=== PATIENT | male | born 1980 | race Caucasian/White ===

== ENCOUNTER → 2017-12-24 | Day surgery (SDC) | payer BC | LOC: ENDO/OP 07:51 | PROVIDERS: ATTEND Surgery | DX: K21.9 Gastro-esophageal reflux disease without esophagitis (principal); K44.9 Diaphragmatic hernia without obstruction or gangrene; Z79.899 Other long term (current) drug therapy | CPT/HCPCS: 91010 ==

== ENCOUNTER 2018-01-11 12:26 | Outpatient (CLI) | payer BC ==
[2018-01-11 13:16] LABS: #Basophils 0.1 thou/uL (0.0-0.2); #Eosinphils 0.1 thou/uL (0.0-0.7); #Lymphocytes 1.4 thou/uL (1.20-3.40); #Monocytes 0.6 thou/uL (0.11-0.59); #Neutrophils 4.3 thou/uL (1.40-6.50); %Basophils 0.9 % (0.0-1.0); %Eosinophils 0.9 % (0.0-10.0); %Lymphocytes 21.5 % (21.0-51.0); %Neutrophils 67.7 % (42.0-75.0); Mean Corpuscular HGB CONC 32.6 g/dL (32.0-36.0); Mean Corpuscular Hemoglobin 28.8 pg (27.0-31.0); Mean Corpuscular Volume 88.3 fL (78.0-98.0); Mean Platelet Volume 8.6 fL (7.4-10.4); Platelet Count 210 thou/uL (130-400); Red Blood Cell (RBC) Count 4.51 mill/uL (4.70-6.10); White Blood Cell (WBC) Count 6.4 thou/uL (4.8-10.8)
[2018-01-11 13:39] LABS: ALT (SGPT) 28 U/L (8-55); AST (SGOT) 29 U/L (5-34); Albumin 4.4 g/dL (3.5-5.0); Alkaline Phosphatase 69 U/L (40-150); Anion Gap 13 mmol/L (10-20); BUN (Urea Nitrogen) 19 mg/dL (8.9-20.6); Bilirubin, Total 0.5 mg/dL (0.2-1.2); Calc. Creatinine Clearance 0 mL/min (70-130); Calcium 9.6 mg/dL (7.8-10.44); Carbon Dioxide 23 mmol/L (22-29); Chloride 105 mmol/L (98-107); Estimated GFR-MDRD 64; Globulin 2.8 g/dL (2.4-3.5); Glucose 89 mg/dL (70-105); Potassium 4.3 mmol/L (3.5-5.1); Protein, Total 7.2 g/dL (6.0-8.3); Sodium 137 mmol/L (136-145)
--- NOTE | 2018-01-12 09:41 | EKG ---
Test Reason : Blood Pressure : / mmHG Vent. Rate : 073 BPM Atrial Rate : 073 BPM P-R Int : 170 ms QRS Dur : 096 ms QT Int : 382 ms P-R-T Axes : 030 072 014 degrees QTc Int : 420 ms Normal sinus rhythm Normal ECG No previous ECGs available Confirmed by NICKY HASKINS ([id number]) on 01/12/2018 9:41:03 AM Referred By: GENEVA Confirmed By:NICKY HASKINS
== END 2018-01-11 12:27 | disposition home or self-care (01) ==
LOC: LABBT 12:26
PROVIDERS: ATTEND Surgery
DX: Z01.818 Encounter for other preprocedural examination (principal); K44.9 Diaphragmatic hernia without obstruction or gangrene; K21.9 Gastro-esophageal reflux disease without esophagitis
CPT/HCPCS: 80053; 85025; 93005; 93010

== ENCOUNTER 2018-01-13 09:50 | Inpatient (IN) | payer BC ==
[2018-01-11 12:45] VITALS: BMI 33.5
[2018-01-13] MEDS ORDERED: Bupivacaine/Epinephrine 0.25% 30 ML VIAL ONE (09:54)
[2018-01-13] MEDS ORDERED: Fentanyl 100 MCG/2 ML VIAL ONE (10:03)
[2018-01-13] MEDS ORDERED: HYDROmorphone 2 MG/ML VIAL ONE ×2 (10:04→14:27)
[2018-01-13] MEDS ORDERED: Midazolam HCl 2 mg/2 ml Vial ONE (10:29)
[2018-01-13] MEDS ORDERED: Scopolamine 1.5 mg/72 hour Patch ONE (10:30)
[2018-01-13] MEDS ORDERED: CEFAZOLIN/Water 2 GM/20 ML SYRINGE ONE (11:09)
[2018-01-13] MEDS ORDERED: Hydrocodone-Acetamin 15 ML UDCUP PO PRN (13:27)
[2018-01-13] MEDS ORDERED: Ondansetron HCl/PF 4 MG/2 ML Vial IVP PRN ×3 (13:27→13:55)
[2018-01-13] MEDS ORDERED: diphenhydrAMINE 50 MG/ML VIAL IVP PRN ×2 (13:27→13:55)
[2018-01-13] MEDS ORDERED: Dextrose 50% Abboject 50 ML SYRINGE SLOW IVP PRN (13:27)
[2018-01-13] MEDS ORDERED: hydrALAZINE 20 MG/ML VIAL SLOW IVP PRN (13:27)
[2018-01-13] MEDS ORDERED: Dextrose 5% in Water 1,000 ML IV PRN (13:27)
[2018-01-13] MEDS ORDERED: Promethazine HCl 25 MG/ML VIAL IM PRN ×3 (13:27→13:55)
[2018-01-13] MEDS ORDERED: PACU-Morphine 4MG/ML VIAL SLOW IVP PRN (13:32)
[2018-01-13] MEDS ORDERED: HYDROmorphone 2 MG/ML VIAL SLOW IVP PRN (13:32)
[2018-01-13] MEDS ORDERED: Promethazine HCl 25 MG/ML VIAL SLOW IVP PRN (13:32)
[2018-01-13] MEDS ORDERED: diphenhydrAMINE 50 MG/ML VIAL IM PRN (13:55)
[2018-01-13] MEDS ORDERED: HYDROmorphone 10 mg/100 ml CADD IVPB PRN (13:55)
[2018-01-13] MEDS ORDERED: Naloxone HCl 0.4 mg/ml Vial IV PRN (13:55)
[2018-01-13] MEDS ORDERED: Zolpidem Tartrate 5 MG TAB PO PRN (13:55)
[2018-01-13] MEDS ORDERED: diphenhydrAMINE 25 MG CAP PO PRN (13:55)
[2018-01-13] MEDS ORDERED: Communication Order-Pharmacy FS SCH (14:00)
[2018-01-13] MEDS: Ketorolac Tromethamine 30 MG/ML VIAL IVP SCH ×2 (18:45→23:17)
[2018-01-13] MEDS: D5 1/2 NS w/20 mEq KCL 1,000 ML IV SCH ×2 (18:48→23:16)
--- NOTE | 2018-01-13 19:00 | OP ---
PREOPERATIVE DIAGNOSIS: Hiatal hernia with reflux. SURGEON: Adan Zelaya M.D. PROCEDURE PERFORMED: Laparoscopic hiatal henia repair with Carly fundoplication. INDICATIONS: He is a 37-year-old male who has had severe reflux for the last 20 years. An EGD shows a large hiatal hernia. FINDINGS: Large hiatal hernia. The anatomy was distorted from chronic inflammation in the area. PROCEDURE IN DETAIL: After informed consent was obtained, the patient was taken to the operating megha m and given general endotracheal anesthesia. He was placed in the supine position. His abdomen was prepped and draped in usual fashion. Local anesthesia infiltrated subcutaneously and deep, and a 5 m m incision was performed approximately 8 inches below the xiphoid slightly to the left. Veress needl e inserted. Drop test performed. Pneumoperitoneum was created to a pressure of 15 mmHg. A 0-degree laparoscope inserted and under direct vision, a Codementoren liver retractor inserted. Left lobe of li verito retracted superiorly. A 5 mm port was placed just to the left of the falciform and 8 mm port was placed left subcostal and then another 5 mm port placed in left lateral abdomen. The gastrophrenic ligament was divided utilizing the LigaSure. The right crura was easily identified and the peritoneu m opened at the right crura and a long anterior, left crura was ill-defined. There was quite a bit o f inflammation. I was able to do some very careful blunt dissection and then elected to go ahead and take the short gastrics down to help better define the left crura. These were taken down utilizing the LigaSure. The left crura then was able to be further defined. Posteriorly, there is a lot of in flammation and trying to separate the esophagus from the crural confluence posteriorly was difficult. Eventually, I was able to get this dissected out. A Tegan drain was placed around the esophagus and retracted inferiorly. Then, the 40-Turkish bougie was inserted, directed into the stomach and the posterior crural clot plication was performed utilizing 0 Ethibond and sew-right and tie knot device . Then, the fundus was grasped and brought to the right side of the esophagus and the fundoplication was performed between left fundus esophagus and right fundus with 3 sutures. Then, finally the stom ach was tacked to the abdominal wall with a 2-0 silk suture with slight tension to try and prevent re currence. Intraoperative endoscopy was then performed utilizing the video endoscope, which was inser sahnda and under direct vision and advanced into the stomach. The stomach was maximally insufflated wit h air and retroflexed. There was no paraesophageal component and no torsion. The stomach decompress ed and the scope removed. Trocars and retractors removed. The skin closed with interrupted 4-0 Rapi de. Steri-Strips applied. Sterile bandages applied. The patient tolerated the procedure well and w as transferred to recovery in good condition. Sponge and needle count verified correct x2.
[2018-01-13] MEDS: CEFAZOLIN/Water 2 GM/20 ML SYRINGE SLOW IVP SCH (21:22)
[2018-01-14] MEDS: CEFAZOLIN/Water 2 GM/20 ML SYRINGE SLOW IVP SCH (04:20)
[2018-01-14 05:17] LABS: #Monocytes 0.8 thou/uL (0.11-0.59); %Basophils 0.5 % (0.0-1.0); %Eosinophils 0.1 % (0.0-10.0); %Lymphocytes 12.9 % (21.0-51.0); %Neutrophils 76.6 % (42.0-75.0); Hemoglobin 11.8 g/dL (14.0-18.0); Mean Corpuscular HGB CONC 31.4 g/dL (32.0-36.0); Mean Corpuscular Hemoglobin 28.1 pg (27.0-31.0); Mean Corpuscular Volume 89.6 fL (78.0-98.0); Mean Platelet Volume 9.3 fL (7.4-10.4); Platelet Count 192 thou/uL (130-400); RBC Distribution Width 12.3 % (11.5-14.5); Red Blood Cell (RBC) Count 4.18 mill/uL (4.70-6.10); White Blood Cell (WBC) Count 7.9 thou/uL (4.8-10.8)
[2018-01-14 05:24] LABS: Anion Gap 9 mmol/L (10-20); BUN (Urea Nitrogen) 13 mg/dL (8.9-20.6); Calc. Creatinine Clearance 138 mL/min (70-130); Calcium 8.4 mg/dL (7.8-10.44); Carbon Dioxide 26 mmol/L (22-29); Chloride 108 mmol/L (98-107); Estimated GFR-MDRD 73; Glucose 123 mg/dL (70-105); Potassium 4.5 mmol/L (3.5-5.1); Sodium 138 mmol/L (136-145)
[2018-01-14] MEDS: Ketorolac Tromethamine 30 MG/ML VIAL IVP SCH ×2 (05:38→12:27)
[2018-01-14] MEDS: D5 1/2 NS w/20 mEq KCL 1,000 ML IV SCH ×2 (05:40→10:07)
[2018-01-14 08:06] VITALS: TEMP 98
[2018-01-14] MEDS ORDERED: Pantoprazole 40 MG VIAL IVP SCH (09:00)
[2018-01-14] MEDS ORDERED: Enoxaparin Sodium 40 MG/0.4 ML SYRINGE SC SCH (09:00)
--- NOTE | 2018-01-14 10:28 | RAD ---
GASTROGRAFIN SWALLOW STUDY WITH FLUOROSCOPY: HISTORY: Status post laparoscopic hernia repair. FINDINGS: The patient was administered Gastrografin which passes without any difficulty or delay from the esoph bharath into the stomach. No leak. No extravasation. Contrast is noted in the proximal small bowel lo ops. Supine and upright abdomen radiograph demonstrated contrast to be in the stomach and a segment of sma ll bowel. IMPRESSION: No evidence of leak or extravasation. POS: SHAGGY
[2018-01-14 12:23] VITALS: BP 115/73
--- NOTE | 2018-01-14 13:52 | DIS ---
DISCHARGE DIAGNOSES: Large hiatal hernia with severe gastroesophageal reflux. PROCEDURES DURING ADMISSION: Laparoscopic Carly fundoplication with repair of hiatal hernia. HOSPITAL COURSE: The patient was admitted, taken to the operating room where he underwent a laparosc opic repair of hiatal hernia with Carly fundoplication with intraoperative esophagogastroscopy and p ostoperative Gastrografin swallow, that was fine. He was started on liquids. He is tolerating well. His pain is minimal. He is voiding well. He is discharged home in good condition on hydrocodone, Zofran. He will follow up with me in 2 weeks.
== END 2018-01-14 15:01 | disposition home or self-care (01) | DRG 328 ==
LOC: SDC 09:50 → SJJU 13:27
PROVIDERS: ADMIT Surgery; ATTEND Surgery
PROC: 0DV44ZZ Restriction of Esophagogastric Junction, Percutaneous Endoscopic Approach (ICD-10-PCS; principal; 2018-01-13)
PROC: 0BQT4ZZ Repair Diaphragm, Percutaneous Endoscopic Approach (ICD-10-PCS; 2018-01-13)
DX: K44.9 Diaphragmatic hernia without obstruction or gangrene (principal)
CPT/HCPCS: 36415; 74241; 80048; 80053; 85025; 93005; 93010; C9113; J1170; J1650; J1885; J2250; J3010